=== PATIENT | male | born 1960 | race Caucasian/White ===

== ENCOUNTER 2020-09-14 17:19 | Emergency (ER) | payer SELFPAY ==
[~2020-09-14] VITALS: Ht 172.7 cm; Wt 81.6 kg
[2020-09-14 17:23] VITALS: Ht 172.7 cm; Wt 81.6 kg
[2020-09-14 18:13] VITALS: BP 130/69
== END 2020-09-14 18:13 | disposition home or self-care (01) ==
LOC: ED 17:19
DX: U07.1 COVID-19 (principal); B34.9 Viral infection, unspecified
CPT/HCPCS: U0003